=== PATIENT | male | born 1945 | race Caucasian/White ===

== ENCOUNTER 2019-12-22 15:40 | Inpatient (IN) | payer OTHER ==
[~2019-12-22] VITALS: Ht 182.9 cm; Wt 123.3 kg
[2019-12-22 17:09] LABS: BASOPHILS % (AUTO) 0.7 % (0.0-5.0); EOSINOPHILS % (AUTO) 0.5 % (0.0-8.0); HEMATOCRIT 45.2 % (42-54); LYMPHOCYTES % (AUTO) 11.4 % (21.0-51.0); MEAN CORPUSCULAR HEMOGLOBIN 30.4 pg (27.0-33.0); MEAN CORPUSCULAR HGB CONC 33.2 g/dL (32.0-36.0); MEAN CORPUSCULAR VOLUME 91.7 fL (79-99); MONOCYTES % (AUTO) 10.3 % (3.0-13.0); NEUTROPHILS % (AUTO) 76.5 % (40.0-77.0); PLATELET COUNT (AUTO) 218 K/uL (130-400); RED BLOOD CELL COUNT(AUTO) 4.93 MIL/uL (4.50-6.20); RED CELL DISTRIBUTION WIDTH 12.8 % (11.0-15.5); WHITE BLOOD COUNT (AUTO) 13.2 K/uL (4.8-10.8)
[2019-12-22 17:19] LABS: CREATININE 1.1 mg/dL (0.5-1.5); POTASSIUM 3.9 mmol/L (3.5-5.1)
[2019-12-22 17:21] LABS: INR 0.97 (0.85-1.15); PARTIAL THROMBOPLASTIN TIME 28.4 SEC (26.3-35.5); PROTHROMBIN TIME 10.5 SEC (9.6-11.6)
[2019-12-22 17:24] LABS: ALBUMIN 3.4 g/dL (3.5-5.0); BILIRUBIN,TOTAL 1.2 mg/dL (0.2-1.0); TOTAL PROTEIN, SERUM 7.5 g/dL (6.0-8.3)
[2019-12-22] MEDS ORDERED: ACETAMINOPHEN 325 MG TAB PO PRN (18:45)
[2019-12-22] MEDS ORDERED: DiphenhydrAMINE HCL 50 MG/ML VIAL IV PRN (18:45)
[2019-12-22] MEDS ORDERED: ONDANSETRON HCL 4 MG/2 ML VIAL IV PRN (18:45)
[2019-12-22] MEDS ORDERED: NITROGLYCERIN 0.4 MG SL TAB SL PRN (18:45)
[2019-12-22] MEDS ORDERED: DIPHENHYDRAMINE HCL 25 MG CAPSULE PO PRN (18:45)
[2019-12-22 19:04] LABS: CREATINE KINASE, TOTAL 142 U/L (21-232); MYOGLOBIN 127 ng/mL (10-92); TROPONIN I < 0.04 ng/mL (0.00-0.06)
[2019-12-22 19:13] LABS: ALCOHOL, BLOOD < 3 mg/dL (0-10)
[2019-12-22 20:02] LABS: CREATINE KINASE, TOTAL 112 U/L (21-232); MYOGLOBIN 106 ng/mL (10-92); TROPONIN I < 0.04 ng/mL (0.00-0.06)
[2019-12-22] MEDS ORDERED: HYDRALAZINE HCL 20 MG/ML VIAL ONE (20:12)
[2019-12-22] MEDS ORDERED: MORPHINE SULFATE 2 MG/ML 1ML SYG ONE (20:13)
[2019-12-22 20:16] LABS: APPEARANCE,URINE Clear (CLEAR); BILIRUBIN,URINE Negative (NEGATIVE); COLOR,URINE Yellow (YELLOW); GLUCOSE, URINE (UA) Negative (NEGATIVE); KETONES,URINE Negative (NEGATIVE); LEUKOCYTE ESTERASE ,URINE Negative (NEGATIVE); NITRATE,URINE Negative (NEGATIVE); OCCULT BLOOD,URINE Small (NEGATIVE); PH,URINE 6.5 (5.0-8.0); PROTEIN,URINE Trace mg/dL (NEGATIVE); UROBILINOGEN,URINE 0.2 mg/dL (0.2-1.0)
[2019-12-22 20:29] LABS: AMPHET/METH SCREEN,URINE NEGATIVE (NEGATIVE); BARBITURATE SCREEN, URINE NEGATIVE (NEGATIVE); BENZODIAZEPINES SCREEN,URINE NEGATIVE (NEGATIVE); CANNABINOID SCREEN,URINE NEGATIVE (NEGATIVE); COCAINE SCREEN,URINE NEGATIVE (NEGATIVE); OPIATE SCREEN,URINE POSITIVE (NEGATIVE); PHENCYCLIDINE SCREEN,URINE NEGATIVE (NEGATIVE)
[2019-12-22 20:50] VITALS: BP 172/82
[2019-12-22 20:58] LABS: BACTERIA,URINE Rare /HPF (None Seen); WBC,URINE 0-1 /HPF (0-1)
[2019-12-22 20:59] LABS: SQUAMOUS EPITHELIAL CELL,UR Rare /HPF (0-2)
[2019-12-22] MEDS ORDERED: OLME40TA18 PO (21:33)
[2019-12-22] MEDS ORDERED: METF-444 PO (21:33)
[2019-12-22] MEDS ORDERED: BUPR-74 PO (21:33)
[2019-12-22] MEDS ORDERED: CARV12.511 PO (21:33)
[2019-12-22] MEDS ORDERED: FURO40TA7 PO (21:33)
[2019-12-22] MEDS ORDERED: COLC0.6T67 PO (21:33)
[2019-12-22] MEDS: SODIUM CHLORIDE 0.9% 1000ML 1,000 ML IV SCH (21:37)
[2019-12-22] MEDS: FAMOTIDINE 20MG TAB 20 MG TAB PO SCH (21:37)
[2019-12-22] MEDS ORDERED: COLCHICINE 0.6 MG TABLET PO SCH (22:30)
[2019-12-22] MEDS ORDERED: GLUCAGON 1MG KIT 1 MG ML IM PRN (22:30)
[2019-12-22] MEDS ORDERED: DEXTROSE 50%-WATER 50 ML DISP.SYRIN IV PRN (22:30)
[2019-12-22 22:56] LABS: HEMOGLOBIN A1C 5.8 % (4.0-6.0)
[2019-12-22] MEDS: CEFTRIAXONE SODIUM 1 GM IVP SCH (23:00)
[2019-12-22] MEDS ORDERED: IPRATROPIUM/ALBUTEROL SULFATE 3 ML SOLUTION IH PRN (23:00)
[2019-12-22] MEDS: AZITHROMYCIN 500MG+NS 250ML 250 ML IV SCH (23:00)
[2019-12-22] MEDS ORDERED: CEFTRIAXONE SODIUM 1 GM ONE (23:05)
[2019-12-22] MEDS ORDERED: AZITHROMYCIN 500MG+NS 250ML 250 ML IV ONE (23:05)
[2019-12-22 23:25] VITALS: BP 175/91
[2019-12-23] VITALS (19 sets, daily range): BP systolic 115–186; BP diastolic 66–96
[2019-12-23] MEDS ORDERED: MORPHINE SULFATE 2 MG/ML 1ML SYG ONE (01:48)
[2019-12-23] MEDS: SODIUM CHLORIDE 0.9% 1000ML 1,000 ML IV SCH ×3 (04:45→19:10)
[2019-12-23 05:09] LABS: HEMATOCRIT 42.4 % (42-54); MEAN CORPUSCULAR HEMOGLOBIN 30.5 pg (27.0-33.0); MEAN CORPUSCULAR HGB CONC 33.3 g/dL (32.0-36.0); MEAN CORPUSCULAR VOLUME 91.6 fL (79-99); PLATELET COUNT (AUTO) 190 K/uL (130-400); RED BLOOD CELL COUNT(AUTO) 4.63 MIL/uL (4.50-6.20); RED CELL DISTRIBUTION WIDTH 12.9 % (11.0-15.5); WHITE BLOOD COUNT (AUTO) 11.4 K/uL (4.8-10.8)
[2019-12-23] MEDS ORDERED: HYDRALAZINE HCL 20 MG/ML VIAL ONE (05:21)
[2019-12-23 05:28] LABS: ALANINE AMINOTRANSFERASE 15 U/L (12-78); ASPARTATE AMINOTRANSFERASE 16 U/L (10-37); BILIRUBIN,TOTAL 1.3 mg/dL (0.2-1.0); CARBON DIOXIDE 26 mmol/L (21-32); CHLORIDE 104 mmol/L (101-111); CREATINE KINASE, TOTAL 116 U/L (21-232); GLOMERULAR FILTR. RATE CALC 77 mL/min (>60); GLUCOSE,RANDOM 101 mg/dL (70-105); MYOGLOBIN 188 ng/mL (10-92); POTASSIUM 3.5 mmol/L (3.5-5.1); SODIUM SERUM 140 mmol/L (136-145); TOTAL PROTEIN, SERUM 6.9 g/dL (6.0-8.3); TROPONIN I < 0.04 ng/mL (0.00-0.06); UREA NITROGEN, BLOOD 11 mg/dL (7-18)
[2019-12-23] MEDS ORDERED: HYDRALAZINE HCL 20 MG/ML VIAL IV PRN (05:30)
[2019-12-23] MEDS: MORPHINE SULFATE 2 MG/ML 1ML SYG IVP PRN ×2 (05:34→09:13)
[2019-12-23 06:20] LABS: BAND NEUTROPHILS % (MANUAL) 2 % (0-2); BASOPHILS % (MANUAL) 1 % (0-2); LYMPHOCYTES % (MANUAL) 17 % (22-44); MAN.DIFF COMMENT-IMPRESSION MANUAL DIFFERENTIAL; MONOCYTES % (MANUAL) 14 % (2-9); PLATELET MORPHOLOGY COMMENT ADEQUATE; REACTIVE LYMPHOCYTES 2 % (0-0); SEGMENTED NEUTROPHILS % 64 % (40-70)
[2019-12-23] MEDS ORDERED: CEFAZOLIN SODIUM 1 GM VIAL IVP PRN (08:30)
[2019-12-23] MEDS ORDERED: CEFAZOLIN 3GM /D5W 100ML 100 ML IV SCH (08:45)
[2019-12-23] MEDS: FAMOTIDINE 20MG TAB 20 MG TAB PO SCH ×2 (09:08→20:58)
[2019-12-23] MEDS: LOSARTAN 100 MG TABLET PO SCH (09:08)
[2019-12-23] MEDS: BUPROPION HCL 150 MG TABLET.SA PO SCH ×2 (09:08→20:58)
[2019-12-23] MEDS: FUROSEMIDE 40 MG TABLET PO SCH ×2 (09:09→20:58)
[2019-12-23] MEDS: CARVEDILOL 12.5 MG TABLET PO SCH ×2 (09:09→20:58)
[2019-12-23] MEDS ORDERED: CEFAZOLIN SODIUM 1 GM VIAL ONE ×2 (13:28→16:00)
--- NOTE | 2019-12-23 13:32 | NUR ---
DCP CM met with pt and spouse discussed dc plans, spoke to spouse in room. As per spouse pt is independent prior to admission, lives at home with spouse. Pt has a cane he uses only in the morning. Denies any other equipments/services. Feels safe to go back home, spouse able to assist with transportation and needs as necessary. Discussed possible need for HH vs SNF for Pt, spouse agreeable, would like to decide after surgery and once pt stable to dc, preferred pt to go home, but willing to consider dependent what MD recommends. DC plan to home w/HH vs rehab. CM to continue to follow up. Addendum: 12/24/19 at 1335 by LESA LEVY LVN CM Amended: Links added.
[2019-12-23] MEDS ORDERED: METOCLOPRAMIDE 10 MG/2 ML VIAL ONE (14:38)
[2019-12-23] MEDS ORDERED: KETAMINE 50MG/ML SYRINGE 50 MG/ML DISP.SYRIN IV ONE (14:43)
[2019-12-23] MEDS ORDERED: ROPIVACAINE 0.5% 5MG/ML 30ML IJ ONE ×2 (14:43→18:33)
[2019-12-23] MEDS ORDERED: SUCCINYLCHOLINE 200MG/10ML SYR ONE (14:45)
[2019-12-23] MEDS ORDERED: ROCURONIUM 10MG/1ML SYR 10 MG/ML ML ONE ×2 (14:46→16:10)
[2019-12-23] MEDS ORDERED: PROPOFOL 10 MG/ML 20ML VIAL IV ONE (14:46)
[2019-12-23] MEDS ORDERED: ONDANSETRON HCL 4 MG/2 ML VIAL ONE (18:31)
[2019-12-23] MEDS ORDERED: GLYCOPYRROLATE 1 MG/5 ML SYRINGE ONE (18:31)
[2019-12-23] MEDS ORDERED: NEOSTIGMINE 5MG/5ML SYR IV ONE (18:32)
[2019-12-23] MEDS ORDERED: POTASSIUM CHLORIDE 10% ELIXIR 20 MEQ/15 ML UDCUP PO PRN (19:00)
[2019-12-23] MEDS: ACETAMINOPHEN EXTRA STRENGTH 500 MG TABLET PO SCH (19:00)
[2019-12-23] MEDS ORDERED: HYDROCODONE/ACETAMINOPHEN 5/325 MG TAB PO PRN (19:00)
[2019-12-23] MEDS ORDERED: FERROUS FUMARATE 324 MG TABLET PO PRN (19:00)
[2019-12-23] MEDS ORDERED: TEMAZEPAM 15 MG CAPSULE PO PRN (19:00)
[2019-12-23] MEDS ORDERED: DiphenhydrAMINE HCL 50 MG/ML VIAL IVP PRN (19:00)
[2019-12-23] MEDS ORDERED: CALCIUM CARBONATE 500 MG TABLET PO PRN (19:00)
[2019-12-23] MEDS ORDERED: LIDOCAINE HCL-MPF 1% 2ML VIAL IV PRN (19:00)
[2019-12-23] MEDS ORDERED: DIPHENHYDRAMINE HCL 25 MG CAPSULE PO PRN (19:00)
[2019-12-23] MEDS ORDERED: POTASSIUM CHLORIDE 20MEQ/100ML 100 ML IV PRN (19:00)
[2019-12-23] MEDS ORDERED: KETOROLAC TROMETHAMINE 15MG/ML IV PRN (19:00)
--- NOTE | 2019-12-23 20:05 | NUR ---
POST OP PATIENT RECEIVED FROM PACU S/P RIGHT TIBULA ORIF AND IM NAILING. SURGICAL BOOT IN PLACE. PATIENT AWAKE AND ALERT. VOICES ALL NEEDS. PATIENT AT THIS TIME PULLING ON IV AND TERRAZZO TILE MAKER. REFUSES TO TAKE VITALS SIGNS AT THIS TIME. SPOUSE AT BEDSIDE TO ASSIST IN CALMING PATIENT DOWN. RESP EVEN AND UNLABORED. NO SOB NOTED. O2 ON AT 2PM VIA NASAL CANULA. SCDSLACED IN PATIENT AND PATIENT CONTINUES TO REFUSE CARE A THIS TIME. WILL TRY AGAIN AFTER PATIENT SETTLES IN. SPOUSE AT BEDSIDE. CALL LIGHT WITHIN REACH. WILL CONTINUE TO BE OBSERVED. Addendum: 12/24/19 at 0605 by PETER ZAMBRANO RN RN Amended: Links added.
[2019-12-23] MEDS: HYDROCODONE/ACETAMINOPHEN 5/325 MG TAB PO PRN (21:00)
[2019-12-23] MEDS: INSULIN HUMULIN R 100 UNIT/ML 3ML SQ SCH (21:00)
[2019-12-23] MEDS: CEFTRIAXONE SODIUM 1 GM IVP SCH (22:18)
[2019-12-23] MEDS: AZITHROMYCIN 500MG+NS 250ML 250 ML IV SCH (22:18)
[2019-12-24] MEDS: ACETAMINOPHEN EXTRA STRENGTH 500 MG TABLET PO SCH ×3 (03:21→19:30)
[2019-12-24] MEDS: CEFAZOLIN 3GM /D5W 100ML 100 ML IV SCH ×2 (03:22→09:09)
[2019-12-24 04:34] VITALS: BP 161/85
[2019-12-24] MEDS: SODIUM CHLORIDE 0.9% 1000ML 1,000 ML IV SCH ×2 (05:33→15:00)
[2019-12-24] MEDS: INSULIN HUMULIN R 100 UNIT/ML 3ML SQ SCH ×4 (06:09→21:00)
[2019-12-24 06:18] LABS: BASOPHILS % (AUTO) 0.5 % (0.0-5.0); EOSINOPHILS % (AUTO) 0.3 % (0.0-8.0); HEMATOCRIT 37.1 % (42-54); LYMPHOCYTES % (AUTO) 8.7 % (21.0-51.0); MEAN CORPUSCULAR HEMOGLOBIN 30.5 pg (27.0-33.0); MEAN CORPUSCULAR HGB CONC 32.3 g/dL (32.0-36.0); MEAN CORPUSCULAR VOLUME 94.2 fL (79-99); MONOCYTES % (AUTO) 10.7 % (3.0-13.0); NEUTROPHILS % (AUTO) 79.2 % (40.0-77.0); PLATELET COUNT (AUTO) 172 K/uL (130-400); RED BLOOD CELL COUNT(AUTO) 3.94 MIL/uL (4.50-6.20); RED CELL DISTRIBUTION WIDTH 13.2 % (11.0-15.5); WHITE BLOOD COUNT (AUTO) 14.4 K/uL (4.8-10.8)
[2019-12-24 06:27] LABS: CREATININE 1.4 mg/dL (0.5-1.5); POTASSIUM 3.4 mmol/L (3.5-5.1)
[2019-12-24 07:03] LABS: INR 1.03 (0.85-1.15); PROTHROMBIN TIME 11.1 SEC (9.6-11.6)
[2019-12-24] MEDS: HYDROCODONE/ACETAMINOPHEN 5/325 MG TAB PO PRN ×2 (07:56→19:29)
[2019-12-24 08:16] VITALS: BP 129/76
[2019-12-24] MEDS: LOSARTAN 100 MG TABLET PO SCH (09:00)
[2019-12-24] MEDS: FAMOTIDINE 20MG TAB 20 MG TAB PO SCH ×2 (09:04→20:45)
[2019-12-24] MEDS: BUPROPION HCL 150 MG TABLET.SA PO SCH ×2 (09:05→20:45)
[2019-12-24] MEDS: FUROSEMIDE 40 MG TABLET PO SCH ×2 (09:08→20:45)
[2019-12-24] MEDS: CARVEDILOL 12.5 MG TABLET PO SCH ×2 (09:08→20:45)
[2019-12-24] MEDS: ENOXAPARIN SODIUM 40 MG/0.4 ML SYRINGE SQ SCH (09:10)
[2019-12-24] MEDS: POTASSIUM CHLORIDE 20 MEQ ERTAB PO PRN (09:35)
[2019-12-24] MEDS: POLYETHYLENE GLYCOL 3350 17 GM POWD.PACK PO SCH (10:16)
--- NOTE | 2019-12-24 11:22 | NUR ---
CM Note: [facility] CM met with pt and spouse in room, discussed MD recommendations for HH and DME, spouse and pt agreeable, pt signed BAL for [facility] and [facility]. Faxed order and clinicals to [facility], confirmation received, spoke to Tawny. Aware dcp possibly tomorrow. Pt pending approval. Faxed clinicals and order to [facility], confirmation received, spoke to Ag. Verbalized will need a signed script. Will fax once MD signed. Pt pending approval and delivery for standard walker no wheels and 3in1 chair. Primary nurse Lucille DU aware. CM to continue to follow up.
--- NOTE | 2019-12-24 11:25 | NUR ---
CM Note: Dr Hidalgo made aware will need script signed. flagged in chart. CM to continue to follow up.
[2019-12-24 11:34] VITALS: BP 118/72
[2019-12-24 16:08] VITALS: BP 150/83
[2019-12-24 19:57] VITALS: BP 193/96
[2019-12-24] MEDS: CEFTRIAXONE SODIUM 1 GM IVP SCH (23:11)
[2019-12-24] MEDS: AZITHROMYCIN 500MG+NS 250ML 250 ML IV SCH (23:11)
[2019-12-24 23:55] VITALS: BP 147/74
[2019-12-25] MEDS: ACETAMINOPHEN EXTRA STRENGTH 500 MG TABLET PO SCH ×2 (03:00→11:00)
[2019-12-25 04:09] VITALS: BP 126/79
[2019-12-25] MEDS: INSULIN HUMULIN R 100 UNIT/ML 3ML SQ SCH ×2 (06:41→11:30)
[2019-12-25 07:07] LABS: BASOPHILS % (AUTO) 0.7 % (0.0-5.0); EOSINOPHILS % (AUTO) 1.2 % (0.0-8.0); HEMATOCRIT 33.3 % (42-54); LYMPHOCYTES % (AUTO) 15.1 % (21.0-51.0); MEAN CORPUSCULAR HEMOGLOBIN 29.8 pg (27.0-33.0); MEAN CORPUSCULAR HGB CONC 32.1 g/dL (32.0-36.0); MEAN CORPUSCULAR VOLUME 92.8 fL (79-99); MONOCYTES % (AUTO) 12.3 % (3.0-13.0); NEUTROPHILS % (AUTO) 70.1 % (40.0-77.0); PLATELET COUNT (AUTO) 154 K/uL (130-400); RED BLOOD CELL COUNT(AUTO) 3.59 MIL/uL (4.50-6.20); RED CELL DISTRIBUTION WIDTH 13.1 % (11.0-15.5); WHITE BLOOD COUNT (AUTO) 10.4 K/uL (4.8-10.8)
[2019-12-25 07:15] LABS: CREATININE 1.6 mg/dL (0.5-1.5); POTASSIUM 3.3 mmol/L (3.5-5.1)
[2019-12-25 07:18] LABS: PROTHROMBIN TIME 10.8 SEC (9.6-11.6)
[2019-12-25 08:06] VITALS: BP 137/80
[2019-12-25] MEDS: LOSARTAN 100 MG TABLET PO SCH (08:17)
[2019-12-25] MEDS: CARVEDILOL 12.5 MG TABLET PO SCH (08:17)
[2019-12-25] MEDS: FAMOTIDINE 20MG TAB 20 MG TAB PO SCH (08:17)
[2019-12-25] MEDS: BUPROPION HCL 150 MG TABLET.SA PO SCH (08:18)
[2019-12-25] MEDS: FUROSEMIDE 40 MG TABLET PO SCH (08:19)
[2019-12-25] MEDS: HYDROCODONE/ACETAMINOPHEN 5/325 MG TAB PO PRN ×2 (08:19→12:59)
[2019-12-25] MEDS: POLYETHYLENE GLYCOL 3350 17 GM POWD.PACK PO SCH (08:20)
[2019-12-25] MEDS: ENOXAPARIN SODIUM 40 MG/0.4 ML SYRINGE SQ SCH (08:21)
[2019-12-25] MEDS: POTASSIUM CHLORIDE 20 MEQ ERTAB PO PRN ×2 (08:25→15:02)
[2019-12-25] MEDS ORDERED: POTASSIUM CHLORIDE 10% ELIXIR 20 MEQ/15 ML UDCUP PO PRN (09:30)
[2019-12-25] MEDS ORDERED: POTASSIUM CHLORIDE 20MEQ/100ML 100 ML IV PRN (09:30)
[2019-12-25] MEDS ORDERED: POTASSIUM CHLORIDE 20 MEQ ERTAB PO PRN (09:30)
[2019-12-25] MEDS ORDERED: LIDOCAINE HCL-MPF 1% 2ML VIAL IV PRN (09:30)
[2019-12-25] MEDS ORDERED: AZIT500T2 PO (10:19)
[2019-12-25 11:10] VITALS: BP 148/90
--- NOTE | 2019-12-25 11:26 | NUR ---
CM Note: Dr Hidalgo reminded need script signed for [facility]. As per MD will come up to sign script. Aware flagged in chart. Thao DU aware, to call CM once MD sign script. CM to continue to follow up.
--- NOTE | 2019-12-25 11:32 | NUR ---
CM Note: Analia GIL approval, pending to deliver standard wlkr no wheels and 3in1 chair. CM spoke to Jenifer jordan/Analia GIL, informed will fax signed script as soon as Dr Hidalgo sign. As per Jenifer will approve and deliver standard walker no wheels and 3in1 chair today in pt's room. CM to continue to follow up.
[2019-12-25] MEDS ORDERED: HYDR-4457 PO (11:33)
--- NOTE | 2019-12-25 14:00 | NUR ---
REPORT WAS GIVEN TO DEX FROM . DRESSING CHANGED, TAMI INTACT. APPLIED BETADINE TO INCISION AND DRESSING APPLIED ,SECURED WITH SAMUEL BANDAGE. DISCHARGE INSTRUCTION PROVIDED TO AND PATIENT.
[2019-12-26] MEDS ORDERED: BISACODYL 10 MG SUPP.RECT RC PRN (19:00)
== END 2019-12-25 15:05 | disposition home health service (06) | DRG 853 ==
LOC: EDH 15:40 → EDHIP 18:37 → 3AH 20:46
PROVIDERS: ADMIT Internal Medicine; ATTEND Internal Medicine
PROC: 0QSG06Z Reposition Right Tibia with Intramedullary Internal Fixation Device, Open Approach (ICD-10-PCS; principal; 2019-12-23 15:55)
PROC: 0QSJ04Z Reposition Right Fibula with Internal Fixation Device, Open Approach (ICD-10-PCS; 2019-12-23 15:55)
DX: A41.9 Sepsis, unspecified organism (principal); J18.9 Pneumonia, unspecified organism; R71.0 Precipitous drop in hematocrit; F17.210 Nicotine dependence, cigarettes, uncomplicated; I10 Essential (primary) hypertension; Z20.828 Contact with and (suspected) exposure to other viral communicable diseases; Z83.2 Family history of diseases of the blood and blood-forming organs and certain disorders involving the immune mechanism; F41.9 Anxiety disorder, unspecified; M10.9 Gout, unspecified; R73.03 Prediabetes; W01.0XXA Fall on same level from slipping, tripping and stumbling without subsequent striking against object, initial encounter; Y93.89 Activity, other specified; Y99.8 Other external cause status; Y92.009 Unspecified place in unspecified non-institutional (private) residence as the place of occurrence of the external cause; S82.391A Other fracture of lower end of right tibia, initial encounter for closed fracture; S82.431A Displaced oblique fracture of shaft of right fibula, initial encounter for closed fracture
CPT/HCPCS: 36415; 71045; 73590; 80048; 80053; 80305; 81001; 82550; 82948; 83036; 83605; 83735; 83874; 83880; 84145; 84484; 85025; 85610; 85730; 87040; 87426; 93005; 93306; 94664; 97039; G0378; J0330; J0360; J0456; J0690; J0696; J1650; J2405; J2704; J2710; J2765; J2795; J3490; Q0163; U0003